=== PATIENT | male | born 1960 | race Caucasian/White ===

== ENCOUNTER 2017-12-02 08:38 | Emergency (ER) | payer OTHER ==
--- NOTE | 2017-12-02 10:04 | RAD REPORT ---
EXAM DESCRIPTION: CT - Head Brain Wo Cont - 12/02/2017 9:42 am CLINICAL HISTORY: Weakness, dizziness, near syncope COMPARISON: None. TECHNIQUE: Axial 5 mm thick images of the head were obtained without IV contrast. All CT scans are performed using dose optimization technique as appropriate and may include automated exposure control or mA/KV adjustment according to patient size. FINDINGS: No intracranial hemorrhage, mass, edema or shift of mid-line structures. No acute infarcti on changes seen. No abnormal extra-axial fluid collections. Ventricles are normal. Mastoid air cells and visualized portions of the paranasal sinuses are clear. No acute bony findings. IMPRESSION: Negative non-contrast CT head examination.
--- NOTE | 2017-12-02 12:09 | RAD REPORT ---
EXAM DESCRIPTION: RAD - Chest Single View - 12/02/2017 11:42 am CLINICAL HISTORY: Cough, dizziness, syncope COMPARISON: None. TECHNIQUE: AP portable chest image was obtained 1132 hours . FINDINGS: Lungs are clear. Heart size is upper normal. No vascular engorgement. Trachea is midline. No measurable pleural effusion and no pneumothorax. No gross bony abnormality seen. No acute aortic f indings suspected. IMPRESSION: No acute cardiopulmonary process.
[2017-12-02] MEDS ORDERED: ASPIRIN 81 MG CHEWABLE TABLET ONE (12:20)
[2017-12-02] MEDS ORDERED: MECLIZINE HCL 12.5 MG TAB ONE (12:21)
[2017-12-02] MEDS ORDERED: NA CHLORIDE 0.9% 1,000 ML ONE (12:21)
[2017-12-02 12:56] LABS: Absolute Monocytes 0.6 K/uL (0.1-1.3); Basophils % 0.8 % (0-1.3); Eosinophils % 2.8 % (0-4.4); Hematocrit 45.9 % (39.6-49.0); Lymphocytes % 25.7 % (15.3-44.8); MCH 31.4 pg (27.0-35.0); MCV 93.4 fL (80-100); MPV 9.6 fL (7.6-11.3); Monocytes % 7.1 % (3.3-12.3); RBC Red Blood Cell Count 4.92 M/uL (4.33-5.43)
--- NOTE | 2017-12-02 13:00 | RAD REPORT ---
EXAM DESCRIPTION: LATONIA Escalante CP - 12/02/2017 11:42 am CLINICAL HISTORY: Dizziness, syncope COMPARISON: None. TECHNIQUE: Real-time sonographic evaluation of both carotid systems was performed. Doppler interroga tion was performed with waveform tracing bilaterally. FINDINGS: Normal high resistance waveforms are noted in both external carotid arteries. The common c arotid arteries and internal carotid arteries show normal low resistance waveforms. Mild plaquing changes are present. Visually there is no significant luminal narrowing. No dissection identified. Peak systolic and end diastolic velocity values and the ICA/CCA ratios are in the non-hem odynamically significant range. Antegrade flow seen in both vertebral arteries. Velocity values and ratios were recorded and are retained in the patient's imaging records. IMPRESSION: Mild plaquing changes with no significant atherosclerotic changes otherwise noted. No evidence of a hemodynamically significant stenosis.
[2017-12-02 13:07] LABS: Bicarbonate 32 mEq/L (21-31); Glucose Level 95 mg/dL (65-120); Potassium 3.9 mEq/L (3.6-5.0); Sodium Level 138 mEq/L (135-145)
[2017-12-02 13:09] LABS: Protime INR 1.07
[2017-12-02 13:13] LABS: ALT/SGPT 20 IU/L (10-60); AST/SGOT 19 IU/L (10-42); Albumin 4.7 g/dL (3.2-5.5); Alkaline Phosphatase 55 IU/L (42-121); BUN Blood Urea Nitrogen 13 mg/dL (6-20); Bilirubin Direct < 0.1 mg/dL (0-0.2); Bilirubin Total 0.5 mg/dL (0.3-1.2); Creatine Phosphokinase 140 IU/L (22-269); Magnesium 2.3 mg/dL (1.8-2.5); Protein, Total 7.5 g/dL (6.0-8.3)
[2017-12-02 13:16] LABS: CKMB Creatine Kinase MB 2.5 ng/ml (0.3-4.0)
--- NOTE | 2017-12-02 13:18 | ER ---
Nurse's Notes [facility] Name: Ludin Owen Age: 57 yrs Sex: Male : 1960 Arrival Date: 12/02/2017 Time: 08:41 Bed 24 Private MD: None, None Diagnosis: Dizziness and giddiness;Bradycardia, unspecified;Ventricular premature depolarization Presentation: 12/02 09:05 Presenting complaint: Patient states: had a couple dizzy spells at work today and my iw boss found out so he sent me here, dizziness has resolved, was standing at the time of dizziness, lasted a few seconds. Transition of care: patient was not received from another setting of care. Onset of symptoms was December 02, 2017. Initial Sepsis Screen: Does the patient meet any 2 criteria? No. Patient's initial sepsis screen is negative. Does the patient have a suspected source of infection? No. Patient's initial sepsis screen is negative. Care prior to arrival: None. 09:05 Method Of Arrival: Ambulatory iw 09:05 Acuity: PABLO 3 iw Historical: - Allergies: 09:07 NKA; iw - Home Meds: 09:07 None [Active]; iw - PSHx: 09:07 None; iw - Immunization history:: Adult Immunizations not up to date. - Social history:: Smoking status: Patient/guardian denies using tobacco. - Family history:: not pertinent. Screenin:30 Abuse screen: Denies threats or abuse. Denies injuries from another. Nutritional aj1 screening: No deficits noted. Tuberculosis screening: No symptoms or risk factors identified. 14:40 Fall Risk None identified. aj1 Assessment: 10:30 General: Appears in no apparent distress. comfortable, Behavior is calm, cooperative, aj1 appropriate for age. Pain: Denies pain. Neuro: Level of Consciousness is awake, alert, obeys commands, Oriented to person, place, time, situation, Director [employer]ing are equal bilaterally Moves all extremities. Full function Gait is steady, Speech is normal, Facial symmetry appears normal, Pupils are PERRLA, Intact Reports dizziness, that has now resolved. Cardiovascular: Denies chest pain, palpitations, shortness of breath, syncope, Heart tones S1 S2 present Patient's skin is warm and dry. Rhythm is regular. Respiratory: Airway is patent Respiratory effort is even, unlabored, Respiratory pattern is regular, symmetrical, Breath sounds are clear bilaterally. GI: No signs and/or symptoms were reported involving the gastrointestinal system. : No signs and/or symptoms were reported regarding the genitourinary system. EENT: No signs and/or symptoms were reported regarding the EENT system. Derm: No signs and/or symptoms reported regarding the dermatologic system. Skin is pink, warm \T\ dry. normal. Musculoskeletal: No signs and/or symptoms reported regarding the musculoskeletal system. Circulation, motion, and sensation intact. 11:30 Reassessment: Patient appears in no apparent distress at this time. No changes from aj1 previously documented assessment. Patient and/or family updated on plan of care and expected duration. Pain level reassessed. Patient is alert, oriented x 3, equal unlabored respirations, skin warm/dry/pink. Denies dizziness. 12:30 Reassessment: Patient appears in no apparent distress at this time. No changes from aj1 previously documented assessment. Patient and/or family updated on plan of care and expected duration. Pain level reassessed. Patient is alert, oriented x 3, equal unlabored respirations, skin warm/dry/pink. Denies dizziness. 13:37 Reassessment: Patient appears in no apparent distress at this time. No changes from aj1 previously documented assessment. Patient and/or family updated on plan of care and expected duration. Pain level reassessed. Patient is alert, oriented x 3, equal unlabored respirations, skin warm/dry/pink. 14:39 Reassessment: Patient appears in no apparent distress at this time. No changes from aj1 previously documented assessment. Patient and/or family updated on plan of care and expected duration. Pain level reassessed. Patient is alert, oriented x 3, equal unlabored respirations, skin warm/dry/pink. Vital Signs: 09:07 BP 116 / 61; Pulse 63; Resp 16; Temp 98.2; Pulse Ox 98% on R/A; Weight 97.52 kg; Height iw 5 ft. 10 in. (177.80 cm); Pain 0/10; 10:30 BP 122 / 68; Pulse 49; Resp 16; Pulse Ox 96% on R/A; aj1 11:30 BP 125 / 62; Pulse 49; Resp 17; Pulse Ox 99% ; aj1 12:48 BP 118 / 65; Pulse 58; Resp 12; Pulse Ox 98% on R/A; aj1 13:37 BP 120 / 66; Pulse 52; Resp 18; Pulse Ox 99% ; aj1 14:39 BP 116 / 75; Pulse 55; Resp 18; Pulse Ox 99% ; aj1 09:07 Body Mass Index 30.85 (97.52 kg, 177.80 cm) iw ED Course: 08:41 Patient arrived in ED. mr 08:41 None, None is Private Physician. mr 09:06 Triage completed. iw 09:07 Arm band placed on. iw 09:41 CT completed. Patient tolerated procedure well. Patient moved to CT via wheelchair. jg1 Patient moved back from CT. 09:42 CT Head Brain wo Cont In Process Unspecified. EDMS 10:07 Jan Howard MD is Attending Physician. nu 10:22 EKG done, by pyrotechnic assembler. reviewed by Jan Howard MD. at1 10:30 Patient has correct armband on for positive identification. Bed in low position. Call aj1 light in reach. Side rails up X 1. teletypesetter monitor on. Pulse ox on. NIBP on. 10:30 No provider procedures requiring assistance completed. aj1 10:50 Mahnaz Smith, RN is Primary Nurse. aj1 11:00 Inserted saline lock: 20 gauge in right antecubital area, using aseptic technique. aj1 Blood collected. 11:19 Note: U/S AT BEDSIDE. aa4 11:20 US Carotid Artery Bilateral In Process Unspecified. EDMS 11:40 X-ray completed. Portable x-ray completed in exam room. Patient tolerated procedure ml well. 11:41 XRAY Chest (1 view) In Process Unspecified. EDMS 13:00 Urine collected: clean catch specimen, clear. dh3 13:17 Miguel Alvarenga MD is Referral Physician. nu 14:39 IV discontinued, intact, bleeding controlled, No redness/swelling at site. Pressure aj1 dressing applied. Administered Medications: 12:46 Drug: NS 0.9% 500 ml Route: IV; Rate: bolus; Site: right antecubital; aj1 14:41 Follow up: IV Status: Completed infusion; IV Intake: 500ml aj1 12:46 Drug: NS 0.9% 1000 ml Route: IV; Rate: 125 ml/hr; Site: right antecubital; aj1 14:41 Follow up: IV Status: Completed infusion; IV Intake: 300ml aj1 12:46 Drug: Aspirin 162 mg Route: PO; aj1 14:41 Follow up: Response: No adverse reaction aj1 12:46 Not Given (Patient Refused): Meclizine 50 mg PO once aj1 Intake: 14:41 IV: 500ml; Total: 500ml. aj1 14:41 IV: 300ml; Total: 800ml. aj1 Outcome: 13:17 Discharge ordered by MD. judge 14:40 Discharged to home ambulatory. aj 14:40 Condition: good 14:40 Discharge instructions given to patient, Instructed on discharge instructions, follow up and referral plans. medication usage, Demonstrated understanding of instructions, follow-up care, medications, Prescriptions given X 1. 14:42 Patient left the ED. aj1 Signatures: Dispatcher [employer] EDMahnaz Gerber, RN RN [email or web address] Jan Howard MD MD cha Rivera, Melissa , Mala Francie Good RN Amparo Katz Amanda aa4 Rocio wei, desulfurizer hand EKG Tat1 Aisha West 3
--- NOTE | 2017-12-02 13:18 | EDPHYS ---
Physician Documentation [facility] Name: Ludin Owen Age: 57 yrs Sex: Male : 1960 Arrival Date: 12/02/2017 Time: 08:41 Bed 24 Private MD: None, None ED Physician Jan Howard HPI: 12/02 11:25 This 57 yrs old Male presents to ER via Ambulatory with complaints of nu Dizziness. 11:25 The patient presents with dizziness. Onset: The symptoms/episode began/occurred just nu prior to arrival, this morning. Context: occurred at work. Modifying factors: The symptoms are alleviated by nothing, the symptoms are aggravated by nothing. Associated signs and symptoms: The patient has no apparent associated signs or symptoms. Severity of symptoms: At their worst the symptoms were mild moderate in the emergency department the symptoms are unchanged. Patient's baseline: Neuro: alert and fully oriented. The patient has not experienced similar symptoms in the past. Historical: - Allergies: 09:07 NKA; iw - Home Meds: :07 None [Active]; iw - PSHx: 09:07 None; iw - Immunization history:: Adult Immunizations not up to date. - Social history:: Smoking status: Patient/guardian denies using tobacco. - Family history:: not pertinent. ROS: 11:25 Constitutional: Negative for fever, chills, and weight loss, Eyes: Negative for injury, nu pain, redness, and discharge, ENT: Negative for injury, pain, and discharge, Neck: Negative for injury, pain, and swelling, Cardiovascular: Negative for chest pain, palpitations, and edema, Respiratory: Negative for shortness of breath, cough, wheezing, and pleuritic chest pain, Abdomen/GI: Negative for abdominal pain, nausea, vomiting, diarrhea, and constipation, Back: Negative for injury and pain, : Negative for injury, bleeding, discharge, and swelling, MS/Extremity: Negative for injury and deformity, Skin: Negative for injury, rash, and discoloration, Psych: Negative for depression, anxiety, suicide ideation, homicidal ideation, and hallucinations, Allergy/Immunology: Negative for hives, rash, and allergies, Endocrine: Negative for neck swelling, polydipsia, polyuria, polyphagia, and marked weight changes, Hematologic/Lymphatic: Negative for swollen nodes, abnormal bleeding, and unusual bruising. 11:25 Neuro: Positive for dizziness, weakness. Exam: 11:26 Constitutional: This is a well developed, well nourished patient who is awake, alert, nu and in no acute distress. Head/Face: Normocephalic, atraumatic. Eyes: Pupils equal round and reactive to light, extra-ocular motions intact. Lids and lashes normal. Conjunctiva and sclera are non-icteric and not injected. Cornea within normal limits. Periorbital areas with no swelling, redness, or edema. ENT: Nares patent. No nasal discharge, no septal abnormalities noted. Tympanic membranes are normal and external auditory canals are clear. Oropharynx with no redness, swelling, or masses, exudates, or evidence of obstruction, uvula midline. Mucous membranes moist. Neck: Trachea midline, no thyromegaly or masses palpated, and no cervical lymphadenopathy. Supple, full range of motion without nuchal rigidity, or vertebral point tenderness. No Meningismus. Chest/axilla: Normal chest wall appearance and motion. Nontender with no deformity. No lesions are appreciated. Cardiovascular: Regular rate and rhythm with a normal S1 and S2. No gallops, murmurs, or rubs. Normal PMI, no JVD. No pulse deficits. Respiratory: Lungs have equal breath sounds bilaterally, clear to auscultation and percussion. No rales, rhonchi or wheezes noted. No increased work of breathing, no retractions or nasal flaring. Abdomen/GI: Soft, non-tender, with normal bowel sounds. No distension or tympany. No guarding or rebound. No evidence of tenderness throughout. Back: No spinal tenderness. No costovertebral tenderness. Full range of motion. Male : Normal genitalia with no discharge or lesions. Skin: Warm, dry with normal turgor. Normal color with no rashes, no lesions, and no evidence of cellulitis. MS/ Extremity: Pulses equal, no cyanosis. Neurovascular intact. Full, normal range of motion. Neuro: Awake and alert, GCS 15, oriented to person, place, time, and situation. Cranial nerves II-XII grossly intact. Motor strength 5/5 in all extremities. Sensory grossly intact. Cerebellar exam normal. Normal gait. Psych: Awake, alert, with orientation to person, place and time. Behavior, mood, and affect are within normal limits. 11:29 Musculoskeletal/extremity: DVT Exam: No signs of deep vein thrombosis. no pain, no nu swelling, no tenderness, negative Homans' sign noted on exam, no appreciated bluish discoloration, no erythema, no increased warmth. Vital Signs: 09:07 BP 116 / 61; Pulse 63; Resp 16; Temp 98.2; Pulse Ox 98% on R/A; Weight 97.52 kg; Height iw 5 ft. 10 in. (177.80 cm); Pain 0/10; 10:30 BP 122 / 68; Pulse 49; Resp 16; Pulse Ox 96% on R/A; aj1 11:30 BP 125 / 62; Pulse 49; Resp 17; Pulse Ox 99% ; aj1 12:48 BP 118 / 65; Pulse 58; Resp 12; Pulse Ox 98% on R/A; aj1 13:37 BP 120 / 66; Pulse 52; Resp 18; Pulse Ox 99% ; aj1 14:39 BP 116 / 75; Pulse 55; Resp 18; Pulse Ox 99% ; aj1 09:07 Body Mass Index 30.85 (97.52 kg, 177.80 cm) iw MDM: 10:07 Patient medically screened. [facility] 11:30 Data reviewed: vital signs, nurses notes, lab test result(s), EKG, radiologic studies, [facility] CT scan, doppler, plain films. 12/02 11:04 Order name: Basic Metabolic Panel; Complete Time: 13:18 [facility] 12/02 11:04 Order name: BNP; Complete Time: 13:18 [facility] 12/02 11:04 Order name: CBC with Diff; Complete Time: 13:16 [facility] 12/02 11:04 Order name: Ckmb; Complete Time: 13:18 [facility] 12/02 11:04 Order name: CPK; Complete Time: 13:18 [facility] 12/02 11:04 Order name: LFT's; Complete Time: 13:18 [facility] 12/02 09:22 Order name: CT Head Brain wo Cont; Complete Time: 11:27 12/02 11:04 Order name: Magnesium; Complete Time: 13:18 [facility] 12/02 11:04 Order name: PT-INR; Complete Time: 13:16 [facility] 12/02 11:04 Order name: Ptt, Activated; Complete Time: 13:16 [facility] 12/02 11:04 Order name: Troponin (emerg Dept Use Only); Complete Time: 13:16 [facility] 12/02 11:04 Order name: XRAY Chest (1 view); Complete Time: 12:21 [facility] 12/02 13:38 Order name: Urine Dipstick--Ancillary (enter results) 12/02 13:38 Order name: Urine Dipstick-Ancillary EDMS 12/02 11:04 Order name: EKG; Complete Time: 11:05 [facility] 12/02 11:04 Order name: Cardiac monitoring; Complete Time: 12:46 [facility] 12/02 11:04 Order name: EKG - Nurse/Tech; Complete Time: 12:46 [facility] 12/02 11:04 Order name: IV Saline Lock; Complete Time: 12:47 [facility] 12/02 11:04 Order name: Labs collected and sent; Complete Time: 12:47 [facility] 12/02 11:04 Order name: O2 Per Protocol; Complete Time: 12:47 [facility] 12/02 11:04 Order name: O2 Sat Monitoring; Complete Time: 12:47 [facility] 12/02 11:04 Order name: Urine Dipstick-Ancillary (obtain specimen); Complete Time: 13:24 [facility] 12/02 11:04 Order name: Carotid Artery Bilateral; Complete Time: 13:16 [facility] Administered Medications: 12:46 Drug: NS 0.9% 500 ml Route: IV; Rate: bolus; Site: right antecubital; aj1 14:41 Follow up: IV Status: Completed infusion; IV Intake: 500ml aj1 12:46 Drug: NS 0.9% 1000 ml Route: IV; Rate: 125 ml/hr; Site: right antecubital; aj1 14:41 Follow up: IV Status: Completed infusion; IV Intake: 300ml aj1 12:46 Drug: Aspirin 162 mg Route: PO; aj1 14:41 Follow up: Response: No adverse reaction aj1 12:46 Not Given (Patient Refused): Meclizine 50 mg PO once aj1 Disposition: 12/02/17 13:17 Discharged to Home. Impression: Dizziness and giddiness, Bradycardia, unspecified, Ventricular premature depolarization. - Condition is Stable. - Discharge Instructions: Bradycardia, Dizziness, Premature Ventricular Contraction, Vertigo, Vertigo, Prhu-wc-[id number], Aspirin and Your Heart, Dizziness, [id number]-[id number]. - Prescriptions for Meclizine 25 mg Oral Tablet - take 1 tablet by ORAL route every 8 hours As needed; 30 tablet. - Work release form, Medication Reconciliation Form, Thank You Letter, Antibiotic Education, Prescription Opioid Use form. - Follow up: Private Physician; When: 2 - 3 days; Reason: Recheck today's complaints, Continuance of care, Re-evaluation by your physician. Follow up: Miguel Alvarenga MD; When: 2 - 3 days; Reason: Recheck today's complaints, Re-evaluation by your physician. - Problem is new. - Symptoms have improved. Signatures: Dispatcher [employer] EDMahnaz Gerber RN RN aj1 Jan Howard MD MD cha Williams, Irene, RN RN iw
[2017-12-02 13:53] LABS: Urine Blood NEGATIVE (NEG); Urine Glucose NEGATIVE (NEG); Urine Protein NEGATIVE (NEG); Urine Specific Gravity 1.015 (1.005-1.030); Urine pH 7.5 (5.0-7.0)
--- NOTE | 2017-12-02 13:54 | EKG ---
Test Date: 2017-12-02 Test Time: 10:11:19 Verification Manager: BENNY MEASUREMENT RESULTS: Intervals: Rate: 52 DC: 166 QRSD: 96 QT: 446 QTc: 414 [place]: P: 54 DC: 166 QRS: -59 T: 70 INTERPRETIVE STATEMENTS: Sinus bradycardia with occasional premature ventricular complexes Left axis deviation Abnormal ECG Compared to ECG 02/26/2006 15:57:59 Ventricular premature complex(es) now present Sinus rhythm no longer present Atrial premature complex(es) no longer present Electronically Signed On 12-02-17 13:52:42 CDT by Storm Murillo
== END 2017-12-02 14:42 | disposition home or self-care (01) ==
LOC: ER 08:38
DX: I49.3 Ventricular premature depolarization (principal); R00.1 Bradycardia, unspecified
CPT/HCPCS: 36415; 70450; 71045; 80048; 80076; 81003; 82550; 82553; 83735; 83880; 84484; 85025; 85610; 85730; 93005; 93880; 96360; 96361; 99285; J7030

== ENCOUNTER 2020-02-19 20:08 | Emergency (ER) | payer OTHER ==
--- NOTE | 2020-02-19 22:32 | ER ---
Nurse's Notes [facility] Name: Ludin Oewn Age: 60 yrs Sex: Male : 1960 Arrival Date: 02/19/2020 Time: 20:12 Bed 20 Private MD: Diagnosis: Corns and callosities Presentation: 02/18 20:15 Chief complaint: Patient states: R foot pain, on there sole x 2 weeks. states, "feel ca1 like something is in there". Denies injury. Coronavirus screen: Proceed with normal triage. Patient denies a cough. Patient denies shortness of breath or difficulty breathing. Patient denies measured and/or subjective temperature greater than 100.4F prior to today's visit. Patient denies travel on a cruise ship or to a country the [facility] currently lists as an affected area. Patient denies contact with known and/or suspected case of COVID-19. Ebola Screen: Patient negative for fever greater than or equal to 101.5 degrees Fahrenheit, and additional compatible Ebola Virus Disease symptoms Patient denies exposure to infectious person. Patient denies travel to an Ebola-affected area in the 21 days before illness onset. No symptoms or risks identified at this time. Initial Sepsis Screen: Does the patient meet any 2 criteria? No. Patient's initial sepsis screen is negative. Does the patient have a suspected source of infection? No. Patient's initial sepsis screen is negative. Risk Assessment: Do you want to hurt yourself or someone else? Patient reports no desire to harm self or others. Onset of symptoms was February 19, 2020. 20:15 Method Of Arrival: Ambulatory ca1 20:15 Acuity: PABLO 4 ca1 Triage Assessment: 22:14 General: Appears in no apparent distress. uncomfortable. General: Behavior is calm, ls4 cooperative. Pain: Complains of pain in right foot Pain currently is 5 out of 10 on a pain scale. Neuro: No deficits noted. Cardiovascular: No deficits noted. Respiratory: No deficits noted. GI: No deficits noted. No signs and/or symptoms were reported involving the gastrointestinal system. : No deficits noted. No signs and/or symptoms were reported regarding the genitourinary system. Derm: No deficits noted. No signs and/or symptoms reported regarding the dermatologic system. Musculoskeletal: No deficits noted. No signs and/or symptoms reported regarding the musculoskeletal system. Historical: - Allergies: 20:18 NKA; ca1 - Home Meds: 20:18 None [Active]; ca1 - PMHx: 20:18 Hepatitis C; ca1 - PSHx: 20:18 None; ca1 - Immunization history:: Adult Immunizations not up to date. - Social history:: Smoking status: Patient denies any tobacco usage or history of. Screenin:15 Abuse screen: Denies threats or abuse. Denies injuries from another. Nutritional ls4 screening: No deficits noted. Tuberculosis screening: No symptoms or risk factors identified. Fall Risk None identified. Assessment: 22:10 General: Appears in no apparent distress. comfortable, Behavior is calm, cooperative. ls4 Neuro: No deficits noted. 22:10 Cardiovascular: No deficits noted. Respiratory: No deficits noted. GI: No deficits ls4 noted. : No deficits noted. No signs and/or symptoms were reported regarding the genitourinary system. Vital Signs: 20:15 BP 111 / 63; Pulse 66; Resp 15 S; Temp 97; Pulse Ox 96% on R/A; Weight 95.25 kg (R); ca1 Height 5 ft. 10 in. (177.80 cm) (R); Pain 5/10; 20:15 Body Mass Index 30.13 (95.25 kg, 177.80 cm) ca1 ED Course: 20:12 Patient arrived in ED. ds1 20:18 Triage completed. ca1 20:18 Arm band placed on right wrist. ca1 21:46 Foot Right 3 View XRAY In Process Unspecified. EDMS 22:08 Thom Fox PA is PHCP. [facility] 22:09 Oscar Fry MD is Attending Physician. [facility] 22:14 Marija Peterson, MARGARITA is Primary Nurse. ls4 22:16 Patient has correct armband on for positive identification. Bed in low position. Call ls4 light in reach. Side rails up X 1. court recording monitor on. Pulse ox on. NIBP on. Pillow given. 22:16 No provider procedures requiring assistance completed. X-ray(s) taken. Patient did not ls4 have IV access during this emergency room visit. 22:32 Jj Pozo DPM is Referral Physician. martha Administered Medications: No medications were administered Outcome: 22:32 Discharge ordered by . martha 22:50 Discharged to home ambulatory, ambulates to exit with no distress, steadyl. ls4 22:50 Condition: good 22:50 Discharge instructions given to patient, Instructed on discharge instructions, follow up and referral plans. medication usage, Demonstrated understanding of instructions, follow-up care. 22:52 Patient left the ED. ls4 Signatures: Dispatcher [employer] EDMS Thom Fox PA PA jmm Sanford, Demi ds1 Marija Peterson RN RN ls4 Sil Hinton RN RN ca1 Corrections: (The following items were deleted from the chart) 20:19 20:15 Chief complaint: Patient states: R foot pain x 2 weeks. states, "feel like ca1 something is in there" ca1
--- NOTE | 2020-02-19 22:32 | EDPHYS ---
Physician Documentation [facility] Name: Ludin Owen Age: 60 yrs Sex: Male : 1960 Arrival Date: 02/19/2020 Time: 20:12 Bed 20 Private MD: ED Physician Oscar Fry HPI: 02/18 20:20 This 60 yrs old Male presents to ER via Ambulatory with complaints of Foot jmm Pain. 20:20 The patient presents with pain. Onset: The symptoms/episode began/occurred gradually. jmm 22:27 Modifying factors: The symptoms are alleviated by nothing. the symptoms are aggravated jmm by nothing. This is a 60 year old male with a history of hep c that presents to the ED with complaints of pain to the ball of his right foot for the past 2 weeks. Denies injury. . Historical: - Allergies: 20:18 NKA; ca1 - Home Meds: 20:18 None [Active]; ca1 - PMHx: 20:18 Hepatitis C; ca1 - PSHx: 20:18 None; ca1 - Immunization history:: Adult Immunizations not up to date. - Social history:: Smoking status: Patient denies any tobacco usage or history of. ROS: 22:27 Constitutional: Negative for fever, chills, and weight loss, Cardiovascular: Negative jmm for chest pain, palpitations, and edema, Respiratory: Negative for shortness of breath, cough, wheezing, and pleuritic chest pain. 22:27 MS/extremity: Positive for pain. 22:27 Skin: Positive for 22:27 All other systems are negative. Exam: 22:27 Constitutional: This is a well developed, well nourished patient who is awake, alert, jmm and in no acute distress. Head/Face: atraumatic. Eyes: EOMI, no conjunctival erythema appreciated ENT: Moist Mucus Membranes Neck: Trachea midline, Supple Chest/axilla: Normal chest wall appearance and motion. Cardiovascular: Regular rate and rhythm. No edema appreciated Respiratory: Normal respirations, no respiratory distress appreciated Abdomen/GI: Non distended, soft Back: Normal ROM 22:27 Musculoskeletal/extremity: calluses noted to the ball of the right foot, no surrounding erythema or induration appreciated. . 22:27 Skin: calluses noted to the ball of the right foot. 22:27 Neuro: Orientation: is normal, Mentation: is normal, Memory: is normal. 22:27 Psych: Behavior/mood is pleasant, cooperative. Vital Signs: 20:15 BP 111 / 63; Pulse 66; Resp 15 S; Temp 97; Pulse Ox 96% on R/A; Weight 95.25 kg (R); ca1 Height 5 ft. 10 in. (177.80 cm) (R); Pain 5/10; 20:15 Body Mass Index 30.13 (95.25 kg, 177.80 cm) ca1 MDM: 22:19 Patient medically screened. [facility] 22:31 Data reviewed: vital signs, nurses notes. Counseling: I had a detailed discussion with martha the patient and/or guardian regarding: the historical points, exam findings, and any diagnostic results supporting the discharge/admit diagnosis, radiology results, the need for outpatient follow up, to return to the emergency department if symptoms worsen or persist or if there are any questions or concerns that arise at home. ED course: Patient is alert and non toxic in appearance in the ED. Advised to follow up with podiatry. Patient understood and agrees with the plan of care. . 02/18 20:19 Order name: Foot Right 3 View XRAY ca1 Administered Medications: No medications were administered Disposition: 02/19 01:38 Co-signature as Attending Physician, Oscar Fry MD. 7 Disposition: 02/19/20 22:32 Discharged to Home. Impression: Corns and callosities. - Condition is Stable. - Discharge Instructions: Corns and Calluses. - Medication Reconciliation Form, Thank You Letter, Antibiotic Education, Prescription Opioid Use form. - Follow up: Jj Pozo DPM; When: 2 - 3 days; Reason: Recheck today's complaints, Continuance of care, Re-evaluation by your physician. Signatures: Dispatcher [employer] EDMS Thom Fox PA PA jmm Stewart, Lisa, RN RN ls4 Sil Hinton RN RN ca1 Oscar Fry MD MD 7 Corrections: (The following items were deleted from the chart) 02/18 22:52 22:32 02/19/2020 22:32 Discharged to Home. Impression: Corns and callosities. Condition ls4 is Stable. Forms are Medication Reconciliation Form, Thank You Letter, Antibiotic Education, Prescription Opioid Use. Follow up: Jj Pozo; When: 2 - 3 days; Reason: Recheck today's complaints, Continuance of care, Re-evaluation by your physician. martha
[2020-02-19 22:57] VITALS: BP 111/63; TEMP 97; O2SAT 96
--- NOTE | 2020-02-20 08:58 | RAD REPORT ---
EXAM DESCRIPTION: RAD - Foot Right 3 View - 02/19/2020 9:47 pm CLINICAL HISTORY: PAIN, patient indicates pain in the plantar and medial soft tissues near the first MTP joint, sensation of foreign body COMPARISON: No comparisons FINDINGS: No fracture, dislocation or periosteal reaction. No acute or destructive bone process iden tifiable. Patient does have mild degenerative change at the IP joints. In the area of interest near the first MTP joint there is no foreign body present. No air, calcificat ion or other suspicious finding in the soft tissues. IMPRESSION: Mild degenerative changes are present on related to the area of interest. In the area of concern no bone, joint or soft tissue abnormality seen.
== END 2020-02-19 22:52 | disposition home or self-care (01) ==
LOC: ER 20:08
DX: L84 Corns and callosities (principal)
CPT/HCPCS: 99284

== ENCOUNTER 2022-06-28 10:06 | Emergency (ER) | payer OTHER ==
--- OUTSIDE RECORDS SUMMARY | 2022-06-28 10:10 | XMS REPORT | Continuity of Care Document ---
:1960 Author Organization [facility] t Address [address] [place] [address] Care Team Providers Name Role Phone PCP, PATIENT DOES NOT HAVE A Primary Care Physician Unavaila SHYANNE Rodriguez Attending Clinician Unavailable Shyanne Walker NP Attending Clinician SHYANNE WALKER Admitting Clinician Unavailable Payers Payer Name Policy Type Policy Number Effective Date Expiration Date [facility] [id number] 2021 PPO/POS 00:00:00 Problems Condition Condition Condition Status Onset Resolution Last Treating Co mments Source Name Details Category Date Date Treatment Clinician Date No known No known Disease Unive rs active active ity of problems problems [facility] Allergies, Adverse Reactions, Alerts Allergy Allergy Status Severity Reaction(s) Onset Inactive Treating Comm ents Source Name Type Date Date Clinician NO KNOWN Drug Active Univers ALLERGIE Class ity of S [facility] Social History Social Habit Start Date Stop Date Quantity Comments Source Exposure to Not sure [facility] SARS-CoV-2 (event) Medica l Branch Sex Assigned At [birth year] [facility] 00:00:00 00:00:00 [facility] Smoking Status Start Date Stop Date Source Unknown if ever smoked [facility] Medications Ordered Filled Start Stop Current Ordering Indication Dosage Frequency Signature Comments Components Source Medication Medication Date Date Medication? Clinician (SIG) Name Name methylPREDN Yes [id number] Take by Univers ISolone 4 08-28 9100 mouth ity of mg tablets 00:00: SEE-INSTRU [place] 00 CTIONS. Medical follow Branch package directions dexamethaso 2021- No 10mg 10 mg, Uni vers ne 08-27 Intramuscu ity of (DECADRON 17:45: 17:08 lar, ONCE, [place] PHOSPHATE) 00 :00 1 dose, On Med ical injection [place] 10 mg 08/27/21 at 1145, Routine ketorolac 2021- No 30mg 30 mg, Unive rs (TORADOL) 08-27 Intramuscu ity of injection 17:45: 17:08 lar, ONCE, [place] 30 mg 00 :00 1 dose, On Medical [place] 08/27/21 at 1145, JAZMIN etodolac Yes [id number] 200mg Take 1 Univers 200 mg 08-27 9100 capsule by ity of capsule 00:00: mouth [place] 00 every 8 Medical (eight) Branch hours as needed for Pain. Vital Signs Vital Name Observation Time Observation Value Comments Source Systolic blood 2021-08-27 16:26:00 146 mm[Hg] Univer sity of pressure [facility] Diastolic blood 2021-08-27 16:26:00 56 mm[Hg] [facility] Heart rate 2021-08-27 16:26:00 59 /min [facility] Body temperature 2021-08-27 16:26:00 36.56 [facility] Respiratory rate 2021-08-27 16:26:00 14 /min [facility] Body height 2021-08-27 16:26:00 177.8 cm [facility] Body weight 2021-08-27 16:26:00 95.255 kg [facility] BMI 2021-08-27 16:26:00 30.13 kg/m2 [facility] Oxygen saturation in 2021-08-27 16:26:00 97 /min [facility] Arterial blood by [facility] Pulse oximetry Branch Procedures Procedure Date / Time Performed Performing Clinician Leanne e XR KNEE <3 VW RIGHT 2021-08-27 16:58:53 Shyanne Walker [facility] Encounters Start End Encounter Admission Attending Care Care Encounter Source Date/Time Date/Time Type Type Clinicians Facility Department ID 2021-08-27 2021-08-27 Emergency X [facility] ERT [id number] Univers 10:28:00 13:17:00 SHYANNE mendez [facility] 2021-08-27 2021-08-27 Emergency X [facility] ERT [id number] Univers 10:28:00 13:17:00 SHYANNE mendez [facility] 2021-08-27 2021-08-27 Emergency [facility] [id number] [facility] 10:28:00 13:17:00 [id number] [id number] [facility] 084 Branch Results This patient has no known results.
[2022-06-28] MEDS ORDERED: METHYLPREDNISOLONE 125 MG INJ ONE (10:54)
--- NOTE | 2022-06-28 11:09 | RAD REPORT ---
EXAM DESCRIPTION: RAD - Chest Pa And Lat (2 Views) - 06/28/2022 10:54 am CLINICAL HISTORY: COUGH Chest pain. COMPARISON: Chest Single View dated 12/02/2017 FINDINGS: Moderate patchy opacity in the right lower lobe likely represents pneumonia. The lungs are otherwise clear. The heart is normal in size. No displaced fractures. IMPRESSION: Right lower lobe pneumonia.
[2022-06-28 12:05] LABS: SARS-COV-2 RT PCR NEGATIVE (NEGATIVE)
[2022-06-28 12:09] LABS: Absolute Lymphocytes (CBC) 0.7 K/uL (0.7-4.9); Hematocrit 41.6 % (39.6-49.0); Lymphocytes % 4.7 % (15.3-44.8); MCV 91.7 fL (80-100); MPV 8.7 fL (7.6-11.3); RBC Red Blood Cell Count 4.53 M/uL (4.33-5.43)
[2022-06-28] MEDS ORDERED: CEFTRIAXONE 1000 MG/VIAL ONE (12:23)
[2022-06-28] MEDS ORDERED: NA CHLORIDE 0.9% 50 ML IV ONE (12:23)
[2022-06-28] MEDS ORDERED: ALBUTEROL 2.5 MG/3 ML NEB SOL ONE (12:23)
[2022-06-28] MEDS ORDERED: AZITHROMYCIN 250 MG TAB ONE (12:23)
[2022-06-28] MEDS ORDERED: IPRATROPIUM BROM 0.5MG/2.5ML ONE (12:23)
[2022-06-28 13:30] LABS: Albumin 3.1 g/dL (3.4-5.0); Bilirubin Total 1.2 mg/dL (0.2-1.0); Potassium 3.5 mmol/L (3.5-5.1); Protein, Total 7.1 g/dL (6.4-8.2)
--- NOTE | 2022-06-28 14:32 | EDPHYS ---
Physician Documentation [facility] Name: Ludin Owen Age: 62 yrs Sex: Male : 1960 Arrival Date: 06/28/2022 Time: 10:09 Bed 4 Private MD: ED Physician Jan Howard HPI: 06/28 15:12 This 62 yrs old Male presents to ER via Ambulatory with complaints of Cough, Diarrhea. kb 15:12 The patient or guardian reports cough. Onset: The symptoms/episode began/occurred 2 kb week(s) ago. Severity of symptoms: At their worst the symptoms were moderate, in the emergency department the symptoms are unchanged. Modifying factors: The symptoms are alleviated by nothing, the symptoms are aggravated by nothing. Associated signs and symptoms: Pertinent positives: diarrhea. The patient has not experienced similar symptoms in the past. The patient has not recently seen a physician. 15:15 Pt reports cough and congestion for 2 weeks, diarrhea and chills started yesterday. kb Historical: - Allergies: 10:30 NKA; kr3 - PMHx: 10:30 Hepatitis C; kr3 - PSHx: 10:30 None; kr3 - Immunization history:: Adult Immunizations not up to date. - Social history:: Smoking status: Patient/guardian denies using tobacco, the patient reports quitting approximately 15 years ago. ROS: 15:12 Cardiovascular: Negative for chest pain, palpitations, and edema. kb 15:12 Constitutional: Positive for chills. 15:12 ENT: Positive for sinus congestion. 15:12 Respiratory: Positive for cough, Negative for dyspnea on exertion, hemoptysis, orthopnea, pleurisy, shortness of breath, sputum production, wheezing. 15:12 Abdomen/GI: Positive for diarrhea. 15:12 All other systems are negative. Exam: 15:12 Constitutional: This is a well developed, well nourished patient who is awake, alert, kb and in no acute distress. Head/Face: Normocephalic, atraumatic. ENT: Moist Mucous membranes Cardiovascular: Regular rate and rhythm with a normal S1 and S2. No gallops, murmurs, or rubs. No pulse deficits. Respiratory: Respirations even and unlabored. No increased work of breathing. Talking in full sentences Abdomen/GI: Soft, non-tender. No distention Skin: Warm, dry with normal turgor. Normal color. MS/ Extremity: Pulses equal, no cyanosis. Neurovascular intact. Full, normal range of motion. Neuro: Awake and alert, GCS 15, oriented to person, place, time, and situation. Moves all extremities. Normal gait. Vital Signs: 10:23 BP 118 / 72; Pulse 80; Resp 18; Temp 99.3; Pulse Ox 95% on R/A; Weight 97.52 kg; Height kr3 5 ft. 10 in. (177.80 cm); Pain 3/10; 11:00 BP 135 / 64; Pulse 87; Resp 16; Pulse Ox 97% on R/A; vg1 12:00 BP 134 / 66; Pulse 90; Resp 18; Pulse Ox 94% on R/A; vg1 10:23 Body Mass Index 30.85 (97.52 kg, 177.80 cm) kr3 MDM: 10:33 Patient medically screened. kb 15:08 Data reviewed: vital signs, nurses notes. Data interpreted: Pulse oximetry: on room air kb is 94 %. Interpretation: normal. Counseling: I had a detailed discussion with the patient and/or guardian regarding: the historical points, exam findings, and any diagnostic results supporting the discharge/admit diagnosis, lab results, radiology results, the need for outpatient follow up, a family practitioner, to return to the emergency department if symptoms worsen or persist or if there are any questions or concerns that arise at home. 06/28 10:30 Order name: COVID-19/FLU A+B; Complete Time: 12:05 kb 06/28 11:33 Order name: Blood Culture Adult (2) kb 06/28 10:30 Order name: Chest Pa And Lat (2 Views) XRAY; Complete Time: 11:11 kb 06/28 11:33 Order name: CBC with Diff; Complete Time: 12:14 kb 06/28 11:33 Order name: CMP; Complete Time: 13:32 kb 06/28 11:34 Order name: Lactate w/ 2H reflex if indic.; Complete Time: 12:36 kb 06/28 11:33 Order name: IV Saline Lock - Large Bore; Complete Time: 12:18 kb 06/28 11:33 Order name: Labs collected and sent; Complete Time: 12:18 kb 06/28 11:33 Order name: O2 Per Protocol; Complete Time: 11:44 kb 06/28 11:33 Order name: O2 Sat Monitoring; Complete Time: 11:44 kb 06/28 11:33 Order name: Vital Signs; Complete Time: 11:44 kb 06/28 12:24 Order name: Labs - recollect needed: recollect blood culture/ red top not filled eb enough/ Alka from lab printing label; Complete Time: 12:45 06/28 12:28 Order name: Labs - recollect needed: recollect green top/ hemolyzed per Alka; eb Complete Time: 12:53 Administered Medications: 10:58 Drug: SOLU-Medrol (methylPREDNISolone sodium succinate) 125 mg Route: IM; Site: right vg1 gluteus; 12:26 Drug: Zithromax (azithromycin) 500 mg Route: PO; vg1 12:54 Follow up: Response: No adverse reaction vg1 12:28 Drug: Rocephin (cefTRIAXone) 1 grams Route: IV; Rate: calculated rate; Site: left vg1 forearm; 12:54 Follow up: IV Status: Completed infusion vg1 12:30 Drug: Albuterol 2.5 mg Route: Inhalation; vg1 12:54 Follow up: Response: No adverse reaction vg1 12:30 Drug: AtroVENT (ipratropium) Aerosol 0.5 mg Route: Inhalation; vg1 12:54 Follow up: Response: No adverse reaction vg1 Disposition Summary: 06/28/22 14:32 Discharge Ordered Location: Home kb Condition: Stable kb Diagnosis - Influenza due to identified novel influenza A virus kb - Pneumonia, unspecified organism kb Followup: kb - With: Emergency Department - When: As needed - Reason: Worsening of condition Followup: kb - With: Private Physician - When: 2 - 3 days - Reason: Recheck today's complaints, Continuance of care, Re-evaluation by your physician Discharge Instructions: - Discharge Summary Sheet kb - Community-Acquired Pneumonia, Adult, [id number] kb - Influenza, Adult, [id number] kb Forms: - Medication Reconciliation Form kb - Thank You Letter kb - Antibiotic Education kb - Prescription Opioid Use kb Prescriptions: - Prednisone 20 mg Oral Tablet - take 1 tablet by ORAL route once daily for 5 days; 5 tablet; Refills: 0, kb Product Selection Permitted - Tessalon Perles 100 mg Oral Capsule - take 1 capsule by ORAL route every 8 hours As needed; 15 capsule; Refills: 0, kb Product Selection Permitted - Zithromax 500 mg Oral Tablet - take 1 tablet by ORAL route once daily for 5 days; 5 tablet; Refills: 0, kb Product Selection Permitted Addendum: 06/30/2022 08:32 Co-signature as Attending Physician, Jan Howard MD I agree with the assessment and c lobato plan of care. Signatures: Dispatcher [employer] Simona Naranjo, RECOVERY ANALYST-C RECOVERY ANALYST-Jan Ribera MD MD cha Botello, Elizabeth eb Garcia, Victoria, RN RN vg1 Berta Mustafa RN RN kr3
--- NOTE | 2022-06-28 14:32 | ER ---
Nurse's Notes [facility] Name: Ludin Owen Age: 62 yrs Sex: Male : 1960 Arrival Date: 06/28/2022 Time: 10:09 Bed 4 Private MD: Diagnosis: Influenza due to identified novel influenza A virus;Pneumonia, unspecified organism Presentation: 06/28 10:23 Chief complaint: Patient states: have cough and congestion starting a couple weeks ago, kr3 with diarrhea starting yesterday. Coronavirus screen: Vaccine status: Patient reports receiving the 2nd dose of the covid vaccine. Client denies travel out of the [place] in the last 14 days. Ebola Screen: Patient denies travel to an Ebola-affected area in the 21 days before illness onset. Initial Sepsis Screen: Does the patient meet any 2 criteria? No. Patient's initial sepsis screen is negative. Does the patient have a suspected source of infection? No. Patient's initial sepsis screen is negative. Risk Assessment: Do you want to hurt yourself or someone else? Patient reports no desire to harm self or others. Onset of symptoms was June 14, 2022. 10:23 Method Of Arrival: Ambulatory kr3 10:23 Acuity: PABLO 3 kr3 Triage Assessment: 10:31 General: Appears in no apparent distress. uncomfortable, Behavior is calm, cooperative, kr3 appropriate for age. Pain: Complains of pain in throat. Historical: - Allergies: 10:30 NKA; kr3 - PMHx: 10:30 Hepatitis C; kr3 - PSHx: 10:30 None; kr3 - Immunization history:: Adult Immunizations not up to date. - Social history:: Smoking status: Patient/guardian denies using tobacco, the patient reports quitting approximately 15 years ago. Screenin:00 Abuse screen: Denies threats or abuse. Nutritional screening: No deficits noted. vg1 Tuberculosis screening: No symptoms or risk factors identified. Fall Risk No fall in past 12 months (0 pts). No secondary diagnosis (0 pts). No IV (0 pts). Ambulatory Aid- None/Bed Rest/Nurse Assist (0 pts). Gait- Normal/Bed Rest/Wheelchair (0 pts) Mental Status- Oriented to own ability (0 pts). Total Jones Fall Scale indicates No Risk (0-24 pts). Assessment: 10:53 General: Appears in no apparent distress. comfortable, Behavior is calm, cooperative. vg1 Pain: Complains of pain in generalize body Pain currently is 5 out of 10 on a pain scale. Neuro: Level of Consciousness is awake, alert, obeys commands, Oriented to person, place, time, situation. Cardiovascular: Patient's skin is warm and dry. Respiratory: Airway is patent Respiratory effort is even, unlabored. GI: Reports diarrhea, since yesterday. : No signs and/or symptoms were reported regarding the genitourinary system. EENT: No signs and/or symptoms were reported regarding the EENT system. Derm: Skin is pink, warm \T\ dry. Musculoskeletal: Circulation, motion, and sensation intact. 12:00 Reassessment: Patient appears in no apparent distress at this time. No changes from vg1 previously documented assessment. Patient and/or family updated on plan of care and expected duration. Pain level reassessed. Patient is alert, oriented x 3, equal unlabored respirations, skin warm/dry/pink. 12:46 Reassessment: Per ines Rucker placed on 'exception log' for recollect red top. vg1 Vital Signs: 10:23 BP 118 / 72; Pulse 80; Resp 18; Temp 99.3; Pulse Ox 95% on R/A; Weight 97.52 kg; Height kr3 5 ft. 10 in. (177.80 cm); Pain 3/10; 11:00 BP 135 / 64; Pulse 87; Resp 16; Pulse Ox 97% on R/A; vg1 12:00 BP 134 / 66; Pulse 90; Resp 18; Pulse Ox 94% on R/A; vg1 10:23 Body Mass Index 30.85 (97.52 kg, 177.80 cm) kr3 ED Course: 10:09 Patient arrived in ED. mr 10:18 Simona Patiño FNP-C is PHCP. kb 10:18 Jan Howard MD is Attending Physician. kb 10:30 Triage completed. kr3 10:31 Arm band placed on left wrist. Patient placed in an exam room, on a stretcher. kr3 10:52 Tonya Garcia, MARGARITA is Primary Nurse. vg1 10:56 Chest Pa And Lat (2 Views) XRAY In Process Unspecified. EDMS 11:00 Patient has correct armband on for positive identification. Bed in low position. Call vg1 light in reach. Side rails up X 1. 11:00 No provider procedures requiring assistance completed. vg1 11:04 COVID-19/FLU A+B Sent. vg1 12:08 Inserted saline lock: 20 gauge in left forearm, using aseptic technique. Blood mb9 collected. 12:15 Second set of blood cultures drawn Right hand. vg1 Administered Medications: 10:58 Drug: SOLU-Medrol (methylPREDNISolone sodium succinate) 125 mg Route: IM; Site: right vg1 gluteus; 12:26 Drug: Zithromax (azithromycin) 500 mg Route: PO; vg1 12:54 Follow up: Response: No adverse reaction vg1 12:28 Drug: Rocephin (cefTRIAXone) 1 grams Route: IV; Rate: calculated rate; Site: left vg1 forearm; 12:54 Follow up: IV Status: Completed infusion vg1 12:30 Drug: Albuterol 2.5 mg Route: Inhalation; vg1 12:54 Follow up: Response: No adverse reaction vg1 12:30 Drug: AtroVENT (ipratropium) Aerosol 0.5 mg Route: Inhalation; vg1 12:54 Follow up: Response: No adverse reaction vg1 Medication: 11:00 VIS not applicable for this client. vg1 Outcome: 14:32 Discharge ordered by . kb 14:46 Patient left the ED. eb Signatures: Dispatcher [employer] EDMD Simona Patiño, ISAIAS SUPERVISOR RIDES-Ann Guo Elizabeth eb Garcia, Victoria RN RN vg1 Berta Mustafa RN RN kr3 Ivis, Ann Villanueva, RN RN mb9
[2022-06-28 14:55] VITALS: TEMP 99.3
[2022-06-28 15:06] VITALS: BP 134/66; O2SAT 94
== END 2022-06-28 14:46 | disposition home or self-care (01) ==
LOC: ER 10:06
DX: J10.1 Influenza due to other identified influenza virus with other respiratory manifestations (principal); J18.9 Pneumonia, unspecified organism; Z20.822 Contact with and (suspected) exposure to COVID-19
CPT/HCPCS: 96365; 87040 ×2; 85025; 36415; 83605; 80053; 0240U; 71046; 96372; 99284; J2930; J7613; J7644; Q0144

== ENCOUNTER 2022-07-01 06:03 | Emergency (ER) | payer OTHER ==
--- OUTSIDE RECORDS SUMMARY | 2022-07-01 06:06 | XMS REPORT | Continuity of Care Document ---
:1960 Author Organization [facility] t Address [address] [place] [address] Care Team Providers Name Role Phone PCP, PATIENT DOES NOT HAVE A Primary Care Physician Unavaila SHYANNE Rodriguez Attending Clinician Unavailable Shyanne Walker NP Attending Clinician SHYANNE WALKER Admitting Clinician Unavailable Payers Payer Name Policy Type Policy Number Effective Date Expiration Date S [facility] [id number] 2021 PPO/POS 00:00:00 Problems Condition Condition Condition Status Onset Resolution Last Treating Co mments Source Name Details Category Date Date Treatment Clinician Date No known No known Disease Unive rs active active ity of problems problems [facility] Allergies, Adverse Reactions, Alerts Allergy Allergy Status Severity Reaction(s) Onset Inactive Treating Comm ents Source Name Type Date Date Clinician NO KNOWN Drug Active Univers ALLERGIE Class ity of S [facility] Social History Social Habit Start Date Stop Date Quantity Comments Source Exposure to Not sure [facility] SARS-CoV-2 (event) Medica l Branch Sex Assigned At [birth year] [facility] 00:00:00 00:00:00 Medical Branch Smoking Status Start Date Stop Date Source Unknown if ever smoked [facility] Medications Ordered Filled Start Stop Current Ordering Indication Dosage Frequency Signature Comments Components Source Medication Medication Date Date Medication? Clinician (SIG) Name Name methylPREDN Yes [id number] Take by Univers ISolone 4 08-28 9100 [...] Branch 08/27/21 at 1145, JAZMIN etodolac Yes [id number] 200mg Take 1 Univers 200 mg 08-27 9100 capsule by ity of capsule 00:00: mouth [place] 00 every 8 Medical (eight) Branch hours as needed for Pain. Vital Signs Vital Name Observation Time Observation Value Comments Source Systolic blood 2021-08-27 16:26:00 146 mm[Hg] Univer sity of pressure [facility] Diastolic blood 2021-08-27 16:26:00 56 mm[Hg] [facility] Heart rate 2021-08-27 16:26:00 59 /min [facility] Body temperature 2021-08-27 16:26:00 36.56 [facility] Respiratory rate 2021-08-27 16:26:00 14 /[facility] Body height 2021-08-27 16:26:[address] [facility] Body weight 2021-08-27 16:26:[address] [facility] BMI 2021-08-27 16:26:00 30.13 kg/m2 [facility] Oxygen saturation in 2021-08-27 16:26:00 97 /min [facility] Arterial blood by [facility] Pulse oximetry Branch Procedures Procedure Date / Time Performed Performing Clinician Leanne e XR KNEE <3 VW RIGHT 2021-08-27 16:58:53 Shyanne Walker [facility] Encounters Start End Encounter Admission Attending Care Care Encounter Source Date/Time Date/Time Type Type Clinicians Facility Department ID 2021-08-27 2021-08-27 Emergency X [facility] ERT [id number] Univers 10:28:00 13:17:00 SHYANNE mendez [facility] 2021-08-27 2021-08-27 Emergency X [facility] ERT [id number] Univers 10:28:00 13:17:00 SHYANNE mendez [facility] 2021-08-27 2021-08-27 Emergency [facility] [id number] Univers 10:28:00 13:17:00 Shyanne PORTILLO [id number] andrea [facility] [id number] [facility] [id number] [place] [id number] Branch Results This patient has no known results.
[2022-07-01] MEDS ORDERED: NA CHLORIDE 0.9% 1,000 ML ONE (07:25)
[2022-07-01 07:58] LABS: Absolute Lymphocytes (CBC) 1.5 K/uL (0.7-4.9); Hematocrit 39.8 % (39.6-49.0); Lymphocytes % 14.1 % (15.3-44.8); MCV 91.8 fL (80-100); RBC Red Blood Cell Count 4.33 M/uL (4.33-5.43)
[2022-07-01 08:04] LABS: Protime INR 1.15
[2022-07-01 08:13] LABS: Albumin 2.9 g/dL (3.4-5.0); Bilirubin Total 0.4 mg/dL (0.2-1.0); Potassium 3.2 mmol/L (3.5-5.1); Protein, Total 6.8 g/dL (6.4-8.2)
[2022-07-01 08:14] LABS: Albumin 2.8 g/dL (3.4-5.0); Bilirubin Direct 0.1 mg/dL (0-0.2); Bilirubin Total 0.5 mg/dL (0.2-1.0); Magnesium 2.2 mg/dL (1.8-2.4); Protein, Total 6.8 g/dL (6.4-8.2); Troponin High Sensitivity 6.8 pg/mL (<58.9)
--- NOTE | 2022-07-01 08:16 | ER ---
Nurse's Notes [facility] Name: Ludin Owen Age: 62 yrs Sex: Male : 1960 Arrival Date: 07/01/2022 Time: 06:06 Bed 6 Private MD: Diagnosis: Hemoptysis;Pneumonia due to other specified bacteria-right lower lobe and left lower lobe;Cough;Influenza due to identified novel influenza A virus Presentation: 07/01 06:29 Chief complaint: Patient states: "I have been coughing up blood. I was discharged here tw5 two days ago with Pneumonia.". Coronavirus screen: Vaccine status: Patient reports receiving the 2nd dose of the covid vaccine. Unknown. Ebola Screen: Patient negative for fever greater than or equal to 101.5 degrees Fahrenheit, and additional compatible Ebola Virus Disease symptoms Patient denies exposure to infectious person. Patient denies travel to an Ebola-affected area in the 21 days before illness onset. Initial Sepsis Screen: Does the patient meet any 2 criteria? No. Patient's initial sepsis screen is negative. Does the patient have a suspected source of infection? Yes: Productive cough/pneumonia. Risk Assessment: Do you want to hurt yourself or someone else? Patient reports no desire to harm self or others. Onset of symptoms was July 01, 2022. 06:29 Method Of Arrival: Ambulatory tw5 06:29 Acuity: PABLO 3 tw5 Triage Assessment: 06:31 General: Appears in no apparent distress. uncomfortable, Behavior is calm, cooperative, tw5 appropriate for age. Pain: Denies pain. Historical: - Allergies: 06:31 NKA; tw5 - Home Meds: 06:31 None [Active]; tw5 - PMHx: 06:31 Hepatitis C; Pneumonia; tw5 - PSHx: 06:31 None; tw5 - Immunization history:: Flu vaccine is not up to date. It has been more than one year since last vaccine. - Social history:: Smoking status: Patient denies any tobacco usage or history of. - Family history:: not pertinent. Screenin:30 Abuse screen: Denies threats or abuse. Denies injuries from another. ha1 06:30 Nutritional screening: No deficits noted. Fall Risk None identified. ha1 09:23 Tuberculosis screening: No symptoms or risk factors identified. jd3 Assessment: 06:30 General: Appears comfortable, Behavior is calm, cooperative. Pain: Denies pain. Neuro: ha1 Level of Consciousness is awake, alert, obeys commands, Oriented to person, place, time, situation. Cardiovascular: Heart tones S1 S2 present Patient's skin is warm and dry. Respiratory: Airway is patent Trachea midline Respiratory effort is even, unlabored, Respiratory pattern is regular, symmetrical, Breath sounds are clear bilaterally. Respiratory: Reports cough that is productive with blood secretions. GI: No signs and/or symptoms were reported involving the gastrointestinal system. Abdomen is flat, non-distended, Bowel sounds present X 4 quads. : No signs and/or symptoms were reported regarding the genitourinary system. Derm: No signs and/or symptoms reported regarding the dermatologic system. Skin is pink, warm \\T\\ dry. Musculoskeletal: Circulation, motion, and sensation intact. Range of motion: intact in all extremities. 07:54 General: Appears in no apparent distress. comfortable, Behavior is calm, cooperative, kc6 appropriate for age. Pain: Denies pain. Neuro: Mccullough Agitation-Sedation Scale (RASS): 0 - Alert and Calm Level of Consciousness is awake, alert, obeys commands, Oriented to person, place, time, situation, Appropriate for age. Cardiovascular: Heart tones S1 S2 present Capillary refill < 3 seconds. Respiratory: Reports cough that is productive, with blood secretions Airway is patent Trachea midline Respiratory effort is even, unlabored, Respiratory pattern is regular, symmetrical, Breath sounds are clear bilaterally. GI: No signs and/or symptoms were reported involving the gastrointestinal system. : No signs and/or symptoms were reported regarding the genitourinary system. EENT: No signs and/or symptoms were reported regarding the EENT system. Derm: No signs and/or symptoms reported regarding the dermatologic system. Skin is intact, Skin is pink, warm \\T\\ dry. Musculoskeletal: No signs and/or symptoms reported regarding the musculoskeletal system. Circulation, motion, and sensation intact. Capillary refill < 3 seconds, Range of motion: intact in all extremities. 08:50 Reassessment: Patient appears in no apparent distress at this time. Patient and/or jd3 family updated on plan of care and expected duration. Pain level reassessed. Patient is alert, oriented x 3, equal unlabored respirations, skin warm/dry/pink. 09:18 Reassessment: discharge pending results. jd3 10:16 Reassessment: Patient appears in no apparent distress at this time. Patient and/or kc6 family updated on plan of care and expected duration. Pain level reassessed. Patient is alert, oriented x 3, equal unlabored respirations, skin warm/dry/pink. Patient denies pain at this time. Vital Signs: 06:29 Pulse 73; Resp 18; Temp 98.6; Pulse Ox 97% on R/A; Weight 90.72 kg; Height 5 ft. 10 in. tw5 (177.80 cm); Pain 0/10; 06:30 BP 120 / 72; Pulse 74; Resp 18 S; Pulse Ox 98% on R/A; ha1 07:55 BP 124 / 78; Pulse 69; Resp 14 S; Pulse Ox 94% on R/A; Pain 0/10; kc6 09:22 BP 109 / 73; Pulse 82; Resp 15 S; Pulse Ox 96% on R/A; jd3 06:29 Body Mass Index 28.70 (90.72 kg, 177.80 cm) tw5 ED Course: 06:06 Patient arrived in ED. rg4 06:30 Patient has correct armband on for positive identification. Bed in low position. Call ha1 light in reach. Side rails up X 1. 06:31 Triage completed. tw5 06:31 Arm band placed on. tw5 06:39 Sofya Cha, RN is Primary Nurse. ha1 07:06 Jan Howard MD is Attending Physician. nu 07:53 COVID-19/FLU A+B Sent. kc6 07:53 LFT's Sent. kc6 07:53 Magnesium Sent. kc6 07:53 NT PRO-BNP Sent. kc6 07:53 Troponin HS Sent. kc6 07:53 Ptt, Activated Sent. kc6 07:53 PT-INR Sent. kc6 07:53 CMP Sent. kc6 07:53 CBC with Diff Sent. kc6 07:54 Inserted saline lock: 20 gauge in left forearm, using aseptic technique. Blood kc6 collected. 08:15 Reynold Hawkisn MD is Hospitalizing Provider. nu 08:27 CT Chest For PE Angio In Process Unspecified. EDMS 08:33 XRAY Chest (1 view) In Process Unspecified. EDMS 09:01 Reynold Hawkins MD is Referral Physician. nu 09:10 Urine Culture Sent. kc6 10:28 No provider procedures requiring assistance completed. IV discontinued, intact, kc6 bleeding controlled, No redness/swelling at site. Pressure dressing applied. Administered Medications: 07:53 Drug: NS 0.9% 1000 ml Route: IV; Rate: 125 ml/hr; Site: left forearm; kc6 08:53 Follow up: Response: No adverse reaction; IV Status: Completed infusion; IV Intake: kc6 500ml 09:05 Drug: Zithromax (azithromycin) 500 mg Route: IVPB; Infused Over: 1 hrs; Site: left kc6 forearm; 10:05 Follow up: Response: No adverse reaction; IV Status: Completed infusion; IV Intake: kc6 250ml 09:05 Drug: Pepcid (famotidine) 20 mg Route: IVP; Site: left forearm; kc6 10:05 Follow up: Response: No adverse reaction kc6 09:05 Drug: Potassium Effervescent Tablet 50 mEq Route: PO; kc6 10:05 Follow up: Response: No adverse reaction kc6 09:06 Drug: Rocephin (cefTRIAXone) 2 grams Route: IV; Rate: per protocol; Site: left forearm; kc6 10:06 Follow up: Response: No adverse reaction; IV Status: Completed infusion; IV Intake: [id number] 10:28 Drug: LevOfloxacin 750 mg Route: PO; kc6 10:30 Follow up: Response: No adverse reaction kc6 Medication: 09:23 VIS not applicable for this client. jd3 Intake: 08:53 IV: 500ml; Total: 500ml. kc6 10:05 IV: 250ml; Total: 750ml. kc6 10:06 IV: 10ml; Total: 760ml. kc6 Outcome: 08:16 Decision to Hospitalize by Provider. nu 09:02 Discharge ordered by . nu 10:28 Discharged to home ambulatory. kc6 10:28 Condition: stable 10:28 Discharge instructions given to patient, Instructed on discharge instructions, follow up and referral plans. medication usage, Demonstrated understanding of instructions, follow-up care, medications, Prescriptions given X 3. 10:32 Patient left the ED. kc6 Signatures: Dispatcher [employer] EDWI Jan Howard MD MD cha Garcia, Rubi rg4 Eliseo Matt, RN RN jd3 Alka Mccord tw5 Sofya Cha, RN RN ha1 Salome Santos RN RN kc6 Corrections: (The following items were deleted from the chart) 07:54 07:53 BASIC METABOLIC PANEL+C.LAB.BRZ drawn and sent. kc6 EDMS 09:24 09:22 Pulse 82bpm; Resp 15bpm; Spontaneous; Pulse Ox 96% RA; jd3 jd3
--- NOTE | 2022-07-01 08:16 | EDPHYS ---
Physician Documentation [facility] Name: Ludin Owen Age: 62 yrs Sex: Male : 1960 Arrival Date: 07/01/2022 Time: 06:06 Bed 6 Private MD: ED Physician Jan Howard HPI: 07/01 08:13 This 62 yrs old Male presents to ER via Ambulatory with complaints of nu Coughing Up Blood. 08:13 The patient has shortness of breath at rest, with light activity. Onset: The nu symptoms/episode began/occurred just prior to arrival, this morning. Duration: The symptoms are continuous, and are unchanged since they started. The patient's shortness of breath has no apparent modifying factors. Associated signs and symptoms: The patient has no apparent associated signs or symptoms. Severity of symptoms: At their worst the symptoms were mild in the emergency department the symptoms are unchanged. The patient or guardian reports cough, difficulty breathing. Onset: The symptoms/episode began/occurred 3 day(s) ago. Severity of symptoms: At their worst the symptoms were mild, moderate, in the emergency department the symptoms are unchanged. Historical: - Allergies: 06:31 NKA; tw5 - Home Meds: 06:31 None [Active]; tw5 - PMHx: 06:31 Hepatitis C; Pneumonia; tw5 - PSHx: 06:31 None; tw5 - Immunization history:: Flu vaccine is not up to date. It has been more than one year since last vaccine. - Social history:: Smoking status: Patient denies any tobacco usage or history of. - Family history:: not pertinent. ROS: 08:13 Constitutional: Negative for fever, chills, and weight loss, Eyes: Negative for injury, nu pain, redness, and discharge, ENT: Negative for injury, pain, and discharge, Neck: Negative for injury, pain, and swelling, Cardiovascular: Negative for chest pain, palpitations, and edema, Abdomen/GI: Negative for abdominal pain, nausea, vomiting, diarrhea, and constipation, Back: Negative for injury and pain, : Negative for injury, bleeding, discharge, and swelling, MS/Extremity: Negative for injury and deformity, Skin: Negative for injury, rash, and discoloration, Neuro: Negative for headache, weakness, numbness, tingling, and seizure, Psych: Negative for depression, anxiety, suicide ideation, homicidal ideation, and hallucinations, Allergy/Immunology: Negative for hives, rash, and allergies, Endocrine: Negative for neck swelling, polydipsia, polyuria, polyphagia, and marked weight changes, Hematologic/Lymphatic: Negative for swollen nodes, abnormal bleeding, and unusual bruising. 08:13 Respiratory: Positive for cough, hemoptysis, shortness of breath. Exam: 08:13 Constitutional: This is a well developed, well nourished patient who is awake, alert, nu and in no acute distress. Head/Face: Normocephalic, atraumatic. Eyes: Pupils equal round and reactive to light, extra-ocular motions intact. Lids and lashes normal. Conjunctiva and sclera are non-icteric and not injected. Cornea within normal limits. Periorbital areas with no swelling, redness, or edema. ENT: Nares patent. No nasal discharge, no septal abnormalities noted. Tympanic membranes are normal and external auditory canals are clear. Oropharynx with no redness, swelling, or masses, exudates, or evidence of obstruction, uvula midline. Mucous membranes moist. Neck: Trachea midline, no thyromegaly or masses palpated, and no cervical lymphadenopathy. Supple, full range of motion without nuchal rigidity, or vertebral point tenderness. No Meningismus. Chest/axilla: Normal chest wall appearance and motion. Nontender with no deformity. No lesions are appreciated. Cardiovascular: Regular rate and rhythm with a normal S1 and S2. No gallops, murmurs, or rubs. Normal PMI, no JVD. No pulse deficits. Respiratory: Lungs have equal breath sounds bilaterally, clear to auscultation and percussion. No rales, rhonchi or wheezes noted. No increased work of breathing, no retractions or nasal flaring. Abdomen/GI: Soft, non-tender, with normal bowel sounds. No distension or tympany. No guarding or rebound. No evidence of tenderness throughout. Back: No spinal tenderness. No costovertebral tenderness. Full range of motion. Skin: Warm, dry with normal turgor. Normal color with no rashes, no lesions, and no evidence of cellulitis. MS/ Extremity: Pulses equal, no cyanosis. Neurovascular intact. Full, normal range of motion. Neuro: Awake and alert, GCS 15, oriented to person, place, time, and situation. Cranial nerves II-XII grossly intact. Motor strength 5/5 in all extremities. Sensory grossly intact. Cerebellar exam normal. Normal gait. Psych: Awake, alert, with orientation to person, place and time. Behavior, mood, and affect are within normal limits. 08:13 ECG was reviewed by the Attending Physician. Vital Signs: 06:29 Pulse 73; Resp 18; Temp 98.6; Pulse Ox 97% on R/A; Weight 90.72 kg; Height 5 ft. 10 in. tw5 (177.80 cm); Pain 0/10; 06:30 BP 120 / 72; Pulse 74; Resp 18 S; Pulse Ox 98% on R/A; ha1 07:55 BP 124 / 78; Pulse 69; Resp 14 S; Pulse Ox 94% on R/A; Pain 0/10; kc6 09:22 BP 109 / 73; Pulse 82; Resp 15 S; Pulse Ox 96% on R/A; jd3 06:29 Body Mass Index 28.70 (90.72 kg, 177.80 cm) tw5 MDM: 07:06 Patient medically screened. nu 08:32 Differential diagnosis: Anxiety Reaction asthma, Bronchitis CHF exacerbation, Chronic nu Obstructive Pulmonary Disease pneumonia, reactive airway disease. Antibiotic administration: Rocephin and Zithromax given. The patient's [place] Deep Vein Thrombosis Score was calculated as follows: Hemoptysis (1.0 Pts) Total Score: 0-2 Pts- Low Risk. Differential Diagnosis: Obstructed Airway Bronchitis Influenza Upper Respiratory Infection Sinusitis Pharyngitis Viral Syndrome Pneumonia. The patient's pulmonary embolism risk score was calculated as follows: hemoptysis (1.0 Pts). Immunization status: Influenza vaccine: within last 5 years. Data reviewed: vital signs, nurses notes, lab test result(s), EKG, radiologic studies, CT scan, plain films. Data interpreted: alarm security or surveillance monitor: rate is 69 beats/min, rhythm is regular, Pulse oximetry: on room air is 94 %. Test interpretation: by ED physician or midlevel provider: ECG, plain radiologic studies. Counseling: I had a detailed discussion with the patient and/or guardian regarding: the historical points, exam findings, and any diagnostic results supporting the discharge/admit diagnosis, lab results, radiology results, the need for further work-up and treatment in the hospital. 07/01 06:50 Order name: CBC with Diff; Complete Time: 08:08 [facility] 07/01 06:50 Order name: CMP; Complete Time: 08:31 [facility] 07/01 06:50 Order name: PT-INR; Complete Time: 08:08 [facility] 07/01 06:50 Order name: Ptt, Activated; Complete Time: 08:08 [facility] 07/01 07:11 Order name: LFT's; Complete Time: 08:31 [facility] 07/01 07:11 Order name: Magnesium; Complete Time: 08:31 [facility] 07/01 07:11 Order name: NT PRO-BNP; Complete Time: 08:31 [facility] 07/01 07:11 Order name: Troponin HS; Complete Time: 08:31 [facility] 07/01 07:11 Order name: Blood Culture Adult (2) [facility] 07/01 07:11 Order name: COVID-19/FLU A+B [facility] 07/01 07:11 Order name: Urine Culture [facility] 07/01 08:09 Order name: Lactate w/ 2H reflex if indic. [facility] 07/01 09:10 Order name: Urine Dipstick-Ancillary EDAZ 07/01 06:50 Order name: XRAY Chest (1 view) [facility] 07/01 07:11 Order name: EKG; Complete Time: 07:11 [facility] 07/01 07:11 Order name: Cardiac monitoring; Complete Time: 07:53 [facility] 07/01 07:11 Order name: EKG - Nurse/Tech; Complete Time: 07:53 [facility] 07/01 07:11 Order name: IV Saline Lock; Complete Time: 07:53 [facility] 07/01 07:11 Order name: Labs collected and sent; Complete Time: 07:53 [facility] 07/01 07:11 Order name: O2 Per Protocol; Complete Time: 07:53 [facility] 07/01 07:11 Order name: O2 Sat Monitoring; Complete Time: 07:53 [facility] 07/01 07:11 Order name: CT Chest For PE Angio [facility] EC:13 Rate is 66 beats/min. Rhythm is regular. QRS [place] is Normal. MA interval is normal. QRS nu interval is normal. QT interval is normal. No Q waves. T waves are Normal. No ST changes noted. Clinical impression: NSR w/ Non-specific ST/T Changes and No evidence of ischemia. Interpreted by me. Reviewed by me. Administered Medications: 07:53 Drug: NS 0.9% 1000 ml Route: IV; Rate: 125 ml/hr; Site: left forearm; kc6 08:53 Follow up: Response: No adverse reaction; IV Status: Completed infusion; IV Intake: kc6 500ml 09:05 Drug: Zithromax (azithromycin) 500 mg Route: IVPB; Infused Over: 1 hrs; Site: left kc6 forearm; 10:05 Follow up: Response: No adverse reaction; IV Status: Completed infusion; IV Intake: kc6 250ml 09:05 Drug: Pepcid (famotidine) 20 mg Route: IVP; Site: left forearm; kc6 10:05 Follow up: Response: No adverse reaction kc6 09:05 Drug: Potassium Effervescent Tablet 50 mEq Route: PO; kc6 10:05 Follow up: Response: No adverse reaction kc6 09:06 Drug: Rocephin (cefTRIAXone) 2 grams Route: IV; Rate: per protocol; Site: left forearm; kc6 10:06 Follow up: Response: No adverse reaction; IV Status: Completed infusion; IV Intake: 12gbac8 10:28 Drug: LevOfloxacin 750 mg Route: PO; kc6 10:30 Follow up: Response: No adverse reaction kc6 Disposition Summary: 07/01/22 09:02 Discharge Ordered Location: Home(07/01/22 09:02) nu Problem: new(07/01/22 09:02) nu Symptoms: have improved(07/01/22 09:02) nu Condition: Stable(07/01/22 09:02) nu Diagnosis - Hemoptysis(07/01/22 09:02) nu - Pneumonia due to other specified bacteria - right lower lobe and left lower nu lobe(07/01/22 09:02) - Cough nu - Influenza due to identified novel influenza A virus(07/01/22 09:02) nu Followup: nu - With: Reynold Hawkins MD - When: 2 - 3 days - Reason: Recheck today's complaints, Continuance of care, Re-evaluation by your physician Discharge Instructions: - Discharge Summary Sheet nu - Hemoptysis nu - Community-Acquired Pneumonia, Adult nu - Influenza, Adult, [id number] nu - Cough, Adult, [id number] nu - Cough, Adult nu - Hemoptysis, [id number] [facility] Forms: - Medication Reconciliation Form nu - Thank You Letter nu - Antibiotic Education nu - Prescription Opioid Use nu - Work release form eb Prescriptions: - Tamiflu 75 mg Oral Capsule - take 1 tablet by ORAL route every 12 hours for 5 days; 10 tablet; Refills: 0, nu Product Selection Permitted - levofloxacin 750 mg Oral Tablet - take 1 tablet by ORAL route once daily; 7 tablet; Refills: 0, Product Selection nu Permitted - albuterol sulfate 90 mcg/actuation Inhalation HFA aerosol inhaler - inhale 2 puff by INHALATION route every 6 hours; 1 Pump; Refills: 0, Product nu Selection Permitted Signatures: Dispatcher [employer] EDMS Jan Howard MD MD cha Wood, Tiffany tw5 Salome Santos RN RN kc6 Corrections: (The following items were deleted from the chart) 07:54 07:11 BASIC METABOLIC PANEL+C.LAB.BRZ ordered. EDMS EDMS 09: 08:16 Inpatient Admission [facility] 09: 08:16 Reynold Hawkins [facility] 09: 08:16 Tele[facility]urg ([facility]patient[facility] 09: 08:16 [facility] 09: 08:16 [facility] 09: 08:16 [facility] 09: 08:16 [facility] 09: [facility] 09: 08:16 Pneumonia due to other specified bacteria - right lower lobefailed outpatient [facility] treatment [facility] 09: 08:16 Hemoptysis [facility] 09: 08:16 Influenza due to identified novel influenza A virus [facility]
--- NOTE | 2022-07-01 08:37 | RAD REPORT ---
EXAM DESCRIPTION: CT - Chest For Pe Angio - 07/01/2022 8:25 am CLINICAL HISTORY: Chest pain. henoptysis COMPARISON: No comparisons TECHNIQUE: CT angiogram of the pulmonary arteries was performed with MIP. All CT scans are performed using dose optimization technique as appropriate and may include automated exposure control or mA/KV adjustment according to patient size. FINDINGS: No evidence of pulmonary thromboembolism. No acute aortic finding demonstrated. Moderate airspace opacity is present in the right lung base posteriorly. Small airspace opacity also seen left lung base. No significant pericardial or pleural fluid. Mild right-sided hilar lymphadenopathy likely reactive. No concerning bony finding. IMPRESSION: No evidence of pulmonary thromboembolism. Moderate airspace opacity right lung base posteriorly and small similar amount in the left lung base posteriorly likely represents pneumonia.
--- NOTE | 2022-07-01 08:38 | RAD REPORT ---
EXAM DESCRIPTION: RAD - Chest Single View - 07/01/2022 8:31 am CLINICAL HISTORY: hemoptysi Chest pain. COMPARISON: Chest Pa And Lat (2 Views) dated 06/28/2022; Chest Single View dated 12/02/2017 FINDINGS: Portable technique limits examination quality. Moderate airspace opacity in the right lung base likely represents pneumonia. The heart is normal in size. No displaced fractures.
[2022-07-01 08:44] LABS: SARS-COV-2 RT PCR NEGATIVE (NEGATIVE)
[2022-07-01] MEDS ORDERED: CEFTRIAXONE 2000 MG/VIAL ONE (08:44)
[2022-07-01] MEDS ORDERED: AZITHROMYCIN 500 MG INJ IVPB ONE (08:44)
[2022-07-01] MEDS ORDERED: POTASSIUM 25 MEQ EFFERV TAB ONE (08:45)
[2022-07-01] MEDS ORDERED: NA CHLORIDE 0.9% 250 ML ONE (08:45)
[2022-07-01] MEDS ORDERED: FAMOTIDINE 20 MG/2 ML VIAL IV ONE (08:45)
[2022-07-01 09:10] LABS: Urine Blood Negative (Negative); Urine Glucose Negative (Negative); Urine Protein Negative (Negative); Urine Specific Gravity 1.015 (1.005-1.030)
[2022-07-01] MEDS ORDERED: levoFLOXacin 750 MG TAB ONE (10:21)
[2022-07-01 10:37] VITALS: TEMP 98.6
[2022-07-01 10:41] VITALS: BP 109/73; O2SAT 96
--- NOTE | 2022-07-02 15:31 | EKG ---
Test Date: 2022-07-01 Test Time: 07:42:43 [employer]her: GENOVEVA MEASUREMENT RESULTS: Intervals: Rate: 66 ID: [id number] QRSD: 100 QT: 422 QTc: 442 [place]: P: 55 ID: [id number] QRS: -68 T: 67 INTERPRETIVE STATEMENTS: Normal sinus rhythm Left anterior fascicular block Abnormal ECG Compared to ECG 12/02/2017 10:11:19 Left anterior fascicular block now present Sinus bradycardia no longer present Ventricular premature complex(es) no longer present Left-axis deviation no longer present Electronically Signed On 07-02-22 15:28:49 [employer] ADMINISTRATOR by Harish Davis
== END 2022-07-01 10:32 | disposition home or self-care (01) ==
LOC: ER 06:03
DX: J10.08 Influenza due to other identified influenza virus with other specified pneumonia (principal); J15.8 Pneumonia due to other specified bacteria; Z20.822 Contact with and (suspected) exposure to COVID-19
CPT/HCPCS: 96365; 96361; 93005; 87040 ×2; 87088; 85025; 87086; 36415; 83735; 85610; 80076; 83605; 85730; 81003; 84484; 80053; 83880; 0240U; 71275; 71045; 96375; 99284; Q9967; J0456; J7050; J7030; J0696